=== PATIENT | female | born 1945 | race Caucasian/White ===

== ENCOUNTER 2019-03-28 13:44 | Outpatient (RCR) | payer MEDICARE, MEDICAID, SELFPAY | END 2019-05-26 15:30 | disposition home or self-care (01) | LOC: PT 13:44 | PROVIDERS: Visit Provider Internal Medicine Cardiovascular Disease | DX: J44.9 Chronic obstructive pulmonary disease, unspecified (principal) | CPT/HCPCS: 93798 ==

== ENCOUNTER → 2019-04-24 14:35 | Outpatient (CLI) | payer MEDICARE, MEDICAID, SELFPAY ==
[2019-04-24 16:14] VITALS: BMI 30.9
== END ==
PROVIDERS: Visit Provider Internal Medicine Cardiovascular Disease
DX: E11.9 Type 2 diabetes mellitus without complications (principal); Z71.3 Dietary counseling and surveillance
CPT/HCPCS: 97802